=== PATIENT | female | born 1985 | race Caucasian/White ===

== ENCOUNTER 2017-02-24 17:03 | Emergency (ER) | payer OTHER, BC | END 2017-02-24 17:38 | disposition home or self-care (01) | DX: S19.9XXA Unspecified injury of neck, initial encounter (principal); M54.5 Low back pain; V43.52XA Car driver injured in collision with other type car in traffic accident, initial encounter; Y92.488 Other paved roadways as the place of occurrence of the external cause; R03.0 Elevated blood-pressure reading, without diagnosis of hypertension ==

== ENCOUNTER 2017-05-14 13:24 | Outpatient (CLI) | payer BC, OTHER ==
[2017-05-14 20:16] LABS: BASOPHILS % (AUTO) 0.1 %; EOSINOPHILS # (AUTO) 0.1 10^3/uL (0.0-0.7); EOSINOPHILS % (AUTO) 1.2 %; HCT - HEMATOCRIT 36.1 % (37.0-47.0); LYMPHOCYTES # (AUTO) 2.6 10^3/uL (1.5-3.5); LYMPHOCYTES % (AUTO) 35.9 %; MEAN CORPUSCULAR HEMOGLOBIN 27.8 pg (27.0-31.0); MEAN CORPUSCULAR HGB CONC 33.3 g/dL (32.0-36.0); MEAN CORPUSCULAR VOLUME 83.3 fL (81.0-99.0); MEAN PLATELET VOLUME 8.1 fL (7.9-10.8); MONOCYTES # (AUTO) 0.5 10^3/uL (0.0-1.0); MONOCYTES % (AUTO) 7.5 %; NEUTROPHILS % (AUTO) 55.3 %; RED BLOOD COUNT 4.33 10^6/uL (4.20-5.40); RED CELL DISTRIBUTION WIDTH 13.9 % (12.0-15.0); UNCORRECTED WHITE BLOOD COUNT 7.2 x10^3/uL; WHITE BLOOD COUNT 7.2 x10^3/uL (4.8-10.8)
[2017-05-14 20:22] LABS: HEMOGLOBIN A1C 0.5 g/dL
[2017-05-14 20:32] LABS: ALBUMIN/GLOBULIN RATIO 1.2 (1.0-2.2); BILIRUBIN,TOTAL 0.4 mg/dL (0.2-1.0); BUN - BLOOD UREA NITROGEN 15 mg/dL (6-20); CALCIUM 9.5 mg/dL (8.5-10.3); CARBON DIOXIDE - CO2 30 mmol/L (21-32); CHLORIDE 101 mmol/L (101-111); CHOLESTEROL 139 mg/dL; CREATININE 0.8 mg/dL (0.4-1.0); GFR - MDRD 83 (>89); GLUCOSE 112 mg/dL (70-100); HDL CHOLESTEROL 46 mg/dL; LDL/HDL RATIO 1.5 (<4.4); POTASSIUM 3.7 mmol/L (3.5-5.0); SODIUM 138 mmol/L (135-145); TOTAL PROTEIN 7.4 g/dL (6.7-8.2); TRIGLYCERIDES 119 mg/dL; VLDL CHOLESTEROL 24 mg/dL
== END 2017-05-14 13:25 | disposition home or self-care (01) ==
LOC: LAB.WCP 13:24
PROVIDERS: ATTEND Family Medicine
DX: Z00.00 Encounter for general adult medical examination without abnormal findings (principal); R10.31 Right lower quadrant pain
CPT/HCPCS: 36415; 80053; 80061; 83036; 84443; 85025

== ENCOUNTER 2017-05-18 13:55 | Outpatient (CLI) | payer BC ==
--- NOTE | 2017-05-19 17:04 | CT Report ---
EXAM: CT ABDOMEN AND PELVIS EXAM DATE: 05/18/2017 04:45 PM. CLINICAL HISTORY: Abdominal pain, right lower quadrant. COMPARISONS: None. TECHNIQUE: Routine helical CT imaging was performed through the abdomen and pelvis. IV contrast: 100 mL of Isovue-300. Enteric contrast: Positive. Reconstructions: Coronal and sagittal. In accordance with CT protocol optimization, one or more of the following dose reduction techniques w ere utilized for this exam: automated exposure control, adjustment of mA and/or KV based on patient s ize, or use of iterative reconstructive technique. FINDINGS: Lung Bases: Minimal basilar scar/atelectasis. Included portions of the heart are unremarkable. Liver: Normal. No masses. Gallbladder/Bile Ducts: Unremarkable. Spleen: Normal. Pancreas: Normal. Adrenal Glands: Normal. Kidneys: Normal. No masses or hydronephrosis. Peritoneal Cavity/Bowel: Stomach is moderately distended and unremarkable. No small bowel obstruction . No small bowel wall thickening. Moderate volume of stool is seen in the colon. No diverticulitis. N o free air. No free fluid. Fatty umbilical hernia. No enlarged retroperitoneal or mesenteric lymph no clarence. A structure in the right lower quadrant, which appears to represent the appendix, is visualized and is normal. No right lower quadrant or pericecal inflammatory changes. Pelvic Organs: Urinary bladder is unremarkable. Uterus is retroverted. No pelvic adenopathy. No pelvi c free fluid. No adnexal masses. Vasculature: No aneurysms or other significant abnormality. Bones: No acute osseous abnormalities. No significant degenerative changes are identified. Other: No evidence of right lower quadrant subcutaneous masses or hernia. IMPRESSION: 1. No evidence of appendicitis. 2. No bowel obstruction. Moderate volume of stool in the colon. No diverticulitis. 3. No nephrolithiasis. No hydronephrosis. No CT evidence of pyelonephritis. 4. Normal CT appearance of the gallbladder and pancreas. No biliary ductal dilatation. [facility] Referring Provider Line: [phone] SITE ID: [id number]
== END 2017-05-18 13:56 | disposition home or self-care (01) ==
LOC: DI 13:55
PROVIDERS: ATTEND Family Medicine
DX: R10.31 Right lower quadrant pain (principal)
CPT/HCPCS: 74177

== ENCOUNTER 2018-03-16 08:00 | Outpatient (CLI) | payer BC ==
[2018-03-16 18:51] LABS: BASOPHILS % (AUTO) 0.2 %; EOSINOPHILS # (AUTO) 0.1 10^3/uL (0.0-0.7); EOSINOPHILS % (AUTO) 1.3 %; HGB - HEMOGLOBIN 12.2 g/dL (12.0-16.0); LYMPHOCYTES # (AUTO) 3.1 10^3/uL (1.5-3.5); LYMPHOCYTES % (AUTO) 45.2 %; MEAN CORPUSCULAR HGB CONC 32.5 g/dL (32.0-36.0); MEAN CORPUSCULAR VOLUME 83.1 fL (81.0-99.0); MEAN PLATELET VOLUME 8.6 fL (7.9-10.8); MONOCYTES # (AUTO) 0.6 10^3/uL (0.0-1.0); MONOCYTES % (AUTO) 8.1 %; NEUTROPHILS # (AUTO) 3.1 10^3/uL (1.5-6.6); NEUTROPHILS % (AUTO) 45.2 %; PLT - PLATELET COUNT 278 10^3/uL (130-450); RED CELL DISTRIBUTION WIDTH 14.1 % (12.0-15.0); WHITE BLOOD COUNT 6.8 x10^3/uL (4.8-10.8)
== END 2018-03-16 08:01 | disposition home or self-care (01) ==
LOC: LAB.WCP 08:00
PROVIDERS: ATTEND Family Medicine
DX: R53.83 Other fatigue (principal)
CPT/HCPCS: 36415; 84443; 85025

== ENCOUNTER 2019-10-07 14:57 | Outpatient (CLI) | payer BC ==
[2019-10-07 18:31] LABS: BASOPHILS % (AUTO) 0.3 %; EOSINOPHILS # (AUTO) 0.1 10^3/uL (0.0-0.7); EOSINOPHILS % (AUTO) 2.1 %; HGB - HEMOGLOBIN 11.8 g/dL (12.0-16.0); LYMPHOCYTES # (AUTO) 2.7 10^3/uL (1.5-3.5); LYMPHOCYTES % (AUTO) 40.6 %; MEAN CORPUSCULAR HEMOGLOBIN 27.1 pg (27.0-31.0); MEAN CORPUSCULAR HGB CONC 31.2 g/dL (32.0-36.0); MEAN CORPUSCULAR VOLUME 86.7 fL (81.0-99.0); MEAN PLATELET VOLUME 10.8 fL (7.9-10.8); MONOCYTES # (AUTO) 0.5 10^3/uL (0.0-1.0); MONOCYTES % (AUTO) 7.6 %; NEUTROPHILS # (AUTO) 3.2 10^3/uL (1.5-6.6); NEUTROPHILS % (AUTO) 49.1 %; PLT - PLATELET COUNT 274 10^3/uL (130-450); RED BLOOD COUNT 4.36 10^6/uL (4.20-5.40); WHITE BLOOD COUNT 6.6 x10^3/uL (4.8-10.8)
[2019-10-07 19:03] LABS: ALBUMIN 4.2 g/dL (3.2-5.5); ALBUMIN/GLOBULIN RATIO 1.3 (1.0-2.2); BILIRUBIN,TOTAL 0.5 mg/dL (0.2-1.0); CALCIUM 9.3 mg/dL (8.5-10.3); CREATININE 0.8 mg/dL (0.4-1.0); TOTAL PROTEIN 7.4 g/dL (6.7-8.2)
== END 2019-10-07 23:59 | disposition home or self-care (01) ==
LOC: LAB.WCP 14:57
PROVIDERS: ATTEND Physician Assistant Medical
DX: R51 Headache (principal); R53.83 Other fatigue
CPT/HCPCS: 36415; 80053; 84443; 85025

== ENCOUNTER 2019-12-15 16:38 | Emergency (ER) | payer BC, OTHER ==
[2019-12-15 16:50] VITALS: BP 134/84
--- NOTE | 2019-12-15 17:06 | ED Physician Documentation ---
History of Present Illness - Stated complaint Stated Complaint: SORE THROAT - Chief complaint Chief Complaint: Heent - History obtained from History obtained from: Patient (4 days ago she had a illness marked with vomiting and diarrhea. That only lasted that single day and is now completely better. The subsequent day she developed a sore throat which is persistent. No fevers or respiratory symptoms otherwise. No neck stiffness.) Review of Systems Constitutional: denies: Fever, Chills Ears: denies: Loss of hearing, Ear pain Nose: denies: Rhinorrhea / runny nose, Congestion Throat: reports: Sore throat Cardiac: denies: Chest pain / pressure, Palpitations Respiratory: denies: Dyspnea, Cough PD PAST MEDICAL HISTORY - Past Medical History Past Medical History: No - Past Surgical History Past Surgical History: No - Present Medications Home Medications: Ambulatory Orders Medication Instructions Recorded Confirmed Norethindrone [Ortho Micronor] 1 tab PO DAILY 02/24/17 02/24/17 - Allergies Allergies/Adverse Reactions: Allergies Allergy/AdvReac Type Severity Reaction Status Date / Time No Known Drug Allergies Allergy Verified 12/15/19 16:49 - Social History Does the pt smoke?: No Smoking Status: Never smoker Does the pt drink ETOH?: No Does the pt have substance abuse?: No - Immunizations Immunizations are current?: Yes - POLST Patient has POLST: No PD ED PE NORMAL - Vitals Vital signs reviewed: Yes - General General: Alert and oriented X 3, No acute distress - HEENT HEENT: Other (Her uvula is red and swollen, there is no evidence of anything approaching an occlusion of the airway and no tonsillitis.) - Neck Neck: Supple, no meningeal sign, No bony TTP, No adenopathy - Derm Derm: Normal color, Warm and dry - Neuro Neuro: Alert and oriented X 3, No motor deficit, No sensory deficit, Normal spee ch Results - Vitals Vitals: Vital Signs - 24 hr 12/15/19 16:48 Temperature 36.8 C Heart Rate 82 Respiratory 17 Rate Blood Pressure 134/84 H O2 Saturation 99 Oxygen O2 Source Room air - Labs Labs: Laboratory Tests 12/15/19 17:01 Group A Strep Rapid Negative PD MEDICAL DECISION MAKING - ED course ED course: Given the time course, her uvulitis is probably from the vomiting, but we will check a strep test. Departure - Departure Disposition: 01 Home, Self Care Clinical Impression: Uvulitis Condition: Good Record reviewed to determine appropriate education?: Yes Instructions: ED Uvulitis Comments: Your uvula swelling is likely from the vomiting you are having the other day. For this you received a dose of long-acting steroids in the department here which should help a lot. Return for new or worsening symptoms or if not better by Thursday. We will culture your throat, if a bacterial pathogen is isolated we will call you in a couple of days.
[2019-12-15 17:21] LABS: RAPID STREP SCREEN Negative (Negative)
[2019-12-15] MEDS ORDERED: DEXAMETHASONE 10 MG/ML VIAL PO STA (17:21)
[2019-12-15] MEDS ORDERED: CHERRY SYRUP 10 ML UDC PO ONE (17:21)
== END 2019-12-15 17:37 | disposition home or self-care (01) ==
LOC: ED 16:38
DX: K12.2 Cellulitis and abscess of mouth (principal); R11.10 Vomiting, unspecified; R19.7 Diarrhea, unspecified
CPT/HCPCS: 87070; 87430; 99283; 99284; A9270

== ENCOUNTER 2019-12-16 13:47 | Emergency (ER) | payer OTHER ==
[2019-12-16 14:08] VITALS: BP 128/78
[2019-12-16] MEDS ORDERED: HYDROcod/ACETAM 5/325 MG TABLET PO STA (14:56)
--- NOTE | 2019-12-16 15:03 | ED Physician Documentation ---
History of Present Illness - Stated complaint Stated Complaint: SORE THROAT - Chief complaint Chief Complaint: Heent - History obtained from History obtained from: Patient - History of Present Illness Timing: How many days ago (3) Pain level max: 0 Pain level now: 0 - Additonal information Additional information: 34-year-old female presents to the emergency department with worsening sore throat. Seen here yesterday for same. She saw her doctor this morning who placed her on amoxicillin for group B strep in her throat culture. She is on steroids for home as well. Worse with swallowing, better with rest. Review of Systems Ten Systems: 10 systems reviewed and negative Constitutional: reports: Fever Throat: reports: Sore throat Cardiac: denies: Chest pain / pressure Respiratory: denies: Cough GI: denies: Vomiting, Diarrhea : denies: Now EGA Skin: denies: Rash PD PAST MEDICAL HISTORY - Past Medical History Past Medical History: No - Past Surgical History Past Surgical History: No - Present Medications Home Medications: Ambulatory Orders Medication Instructions Recorded Confirmed Norethindrone [Ortho Micronor] 1 tab PO DAILY 02/24/17 02/24/17 Hydrocodone/Acetaminophen 1 - 2 each PO Q6H PRN #14 tablet 12/16/19 [Hydrocodon-Acetaminophen 5-325] - Allergies Allergies/Adverse Reactions: Allergies Allergy/AdvReac Type Severity Reaction Status Date / Time No Known Drug Allergies Allergy Verified 12/16/19 14:07 - Social History Does the pt smoke?: No Smoking Status: Never smoker Does the pt drink ETOH?: No Does the pt have substance abuse?: No - Immunizations Immunizations are current?: Yes - POLST Patient has POLST: No PD ED PE NORMAL - Vitals Vital signs reviewed: Yes - General General: Alert and oriented X 3, No acute distress, Well developed/nourished - HEENT HEENT: PERRL, Moist mucous membranes, Other (Posterior oropharyngeal erythema without tonsillar exudates. Uvula midline. Normal phonation. No trismus.) - Neck Neck: Supple, no meningeal sign, No adenopathy - Cardiac Cardiac: RRR - Respiratory Respiratory: No respiratory distress, Clear bilaterally - Abdomen Abdomen: Soft, Non tender, Non distended - Derm Derm: Warm and dry - Neuro Neuro: Alert and oriented X 3 - Psych Psych: Normal mood, Normal affect Results - Vitals Vitals: Vital Signs - 24 hr 12/16/19 14:02 Temperature 37.2 C Heart Rate 127 H Respiratory 16 Rate Blood Pressure 128/78 O2 Saturation 99 Oxygen O2 Source Room air PD MEDICAL DECISION MAKING - ED course Complexity details: reviewed results, re-evaluated patient, considered differential, d/w patient, d/w family ED course: We will place on pain medication for home. She is also already on steroids and antibiotics. We will continue supportive care. No peritonsillar or retropharyngeal abscess. Patient counseled regarding signs and symptoms for which I believe and urgent re-evaluation would be necessary. Patient with good understanding of and agreement to plan and is comfortable going home at this time This document was made in part using voice recognition software. While efforts are made to proofread this document, sound alike and grammatical errors may occur. Departure - Departure Disposition: 01 Home, Self Care Clinical Impression: Strep pharyngitis Condition: Good Instructions: ED Strep Pharyngitis Conf Follow-Up: Crystal Rojas DO [Primary Care Provider] - Within 1 week (if not better) Prescriptions: Hydrocodone/Acetaminophen [Hydrocodon-Acetaminophen 5-325] 1 - 2 each PO Q6H PRN #14 tablet PRN Reason: pain Comments: Your throat culture is growing out group B strep. Take the amoxicillin until gone. Return if you worsen. Drink plenty of fluids. Do not drink alcohol or drive while on narcotic pain medicine. Note that many narcotic pain relievers also contain tylenol/acetaminophen. Please ensure that your total dose of acetaminophen from all sources does not exceed 3 grams (3000mg) per day. You may constipated on this medication, take a stool softener such as "Colace" twice a day while you are on it. Also recommend a kqlk-jjv-vcljsji laxative such as senna or MiraLAX any day that you do not have a bowel movement. If you received narcotic pain medication in the emergency department, do not drive or operate machinery for the next 24 hours.
== END 2019-12-16 15:15 | disposition home or self-care (01) ==
LOC: ED 13:47
DX: J02.0 Streptococcal pharyngitis (principal)
CPT/HCPCS: 99282; 99284; A9270

== ENCOUNTER 2019-12-25 08:12 | Emergency (ER) | payer OTHER ==
[2019-12-25 08:25] VITALS: BP 127/87
--- NOTE | 2019-12-25 08:36 | ED Physician Documentation ---
PD HPI HEENT - Stated complaint Stated Complaint: BODY PX/MOUTH PX - Chief complaint Chief Complaint: General - History obtained from History obtained from: Patient - History of Present Illness Timing - onset: How many days ago (12) Timing - duration: Days (12) Timing - details: Gradual onset, Still present Location: Throat Improves: Nothing Worsens: Swalllowing Associated symptoms: Congestion, Headache Similar symptoms before: Diagnosis (strep) Recently seen: Clinic, Emergency Dept - Additional information Additional information: 34-year-old female has developed a sore throat about 12 days ago. She was seen here in the emergency department a rapid strep was negative. She was given a dose of dexamethasone. She was worse the following day and she went in to see her primary care doctor who placed her on a course of steroid and some amoxicillin. She came back to the ED that same day and was prescribed some pain medication. Her throat culture grew beta hemolytic Group G strep. She developed a white tongue and was seen at an urgent care and prescribed nystatin. At that time the patient self discontinued the amoxicillin and when the nystatin did not work she went again to the doctor and was started on clotrimazole. Her thrush symptoms are improving but she has a persistent sore throat and now has aches all over her body. Review of Systems Constitutional: reports: Fever, Myalgias, Fatigue Eyes: denies: Photophobia Ears: reports: Ear pain Nose: reports: Rhinorrhea / runny nose, Congestion Throat: reports: Sore throat Cardiac: denies: Chest pain / pressure, Palpitations Respiratory: denies: Dyspnea, Cough GI: denies: Abdominal Pain, Nausea, Vomiting : denies: Dysuria, Frequency Musculoskeletal: reports: Extremity pain, Joint pain. denies: Neck pain, Back pain Neurologic: denies: Generalized weakness, Focal weakness, Numbness PD PAST MEDICAL HISTORY - Past Surgical History Past Surgical History: No - Present Medications Home Medications: Ambulatory Orders Medication Instructions Recorded Confirmed Clotrimazole Meghna 10 mg MM 5XD 12/25/19 12/25/19 - Allergies Allergies/Adverse Reactions: Allergies Allergy/AdvReac Type Severity Reaction Status Date / Time No Known Drug Allergies Allergy Verified 12/25/19 08:24 - Social History Does the pt smoke?: No Smoking Status: Never smoker Does the pt drink ETOH?: No Does the pt have substance abuse?: No - Immunizations Immunizations are current?: Yes - POLST Patient has POLST: No PD ED PE NORMAL - Vitals Vital signs reviewed: Yes (tachy and hypertensive ) - General General: Alert and oriented X 3, No acute distress, Well developed/nourished - HEENT HEENT: Atraumatic, PERRL, EOMI, Other (There is minimal white exudate to the tongue postero-lateral. There are 2+ cryptic exudative tonsils with more inflamation to the left tonsillar pillar and this is the side the patient is having the most ear popping. 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, No motor deficit, No sensory deficit, Normal speech Eye Opening: Spontaneous Motor: Obeys Commands Verbal: Oriented GCS Score: 15 - Psych Psych: Normal mood, Normal affect Results - Vitals Vitals: Vital Signs - 24 hr 12/25/19 08:21 Temperature 36.5 C Heart Rate 118 H Respiratory 16 Rate Blood Pressure 127/87 H O2 Saturation 100 Oxygen O2 Source Room air PD MEDICAL DECISION MAKING - ED course Complexity details: reviewed old records, reviewed results, considered differential, d/w patient ED course: 34-year-old female with strep pharyngitis has completed only 3 days of amoxicillin and she misunderstood that she had strep.I have encouraged the patient to complete her course of amoxicillin to continue the Chlortrimazole atrocious as previously prescribed and use other symptomatic relief as needed. Departure - Departure Disposition: 01 Home, Self Care Clinical Impression: Strep pharyngitis Condition: Stable Instructions: ED Strep Pharyngitis Conf Follow-Up: Crystal Rojas DO [Primary Care Provider] - Comments: Finish the amoxicillin you were prescribed previously. It is important to take all of the doses. You should expect day by day improvement and by day 3 have marked improvement.
== END 2019-12-25 09:33 | disposition home or self-care (01) ==
LOC: ED 08:12
DX: J02.0 Streptococcal pharyngitis (principal)
CPT/HCPCS: 99281; 99282

== ENCOUNTER 2020-01-13 07:00 | Outpatient (CLI) | payer OTHER | END 2020-01-13 23:59 | disposition home or self-care (01) | LOC: LAB.R 07:00 | PROVIDERS: ATTEND Nurse Practitioner Family | DX: J02.9 Acute pharyngitis, unspecified (principal) | CPT/HCPCS: 87070 ==

== ENCOUNTER 2020-05-10 09:36 | Outpatient (CLI) | payer OTHER ==
[2020-05-10 11:34] LABS: BASOPHILS % (AUTO) 0.3 %; EOSINOPHILS # (AUTO) 0.1 10^3/uL (0.0-0.7); EOSINOPHILS % (AUTO) 1.5 %; HGB - HEMOGLOBIN 12.8 g/dL (12.0-16.0); LYMPHOCYTES # (AUTO) 1.6 10^3/uL (1.5-3.5); LYMPHOCYTES % (AUTO) 26.5 %; MEAN CORPUSCULAR HEMOGLOBIN 28.1 pg (27.0-31.0); MEAN CORPUSCULAR HGB CONC 32.5 g/dL (32.0-36.0); MEAN CORPUSCULAR VOLUME 86.4 fL (81.0-99.0); MEAN PLATELET VOLUME 10.6 fL (7.9-10.8); MONOCYTES # (AUTO) 0.6 10^3/uL (0.0-1.0); MONOCYTES % (AUTO) 9.1 %; NEUTROPHILS # (AUTO) 3.8 10^3/uL (1.5-6.6); NEUTROPHILS % (AUTO) 62.1 %; PLT - PLATELET COUNT 264 10^3/uL (130-450); RED BLOOD COUNT 4.56 10^6/uL (4.20-5.40); RED CELL DISTRIBUTION WIDTH 13.9 % (12.0-15.0); WHITE BLOOD COUNT 6.2 x10^3/uL (4.8-10.8)
[2020-05-10 11:47] LABS: ALBUMIN 4.4 g/dL (3.2-5.5); ALBUMIN/GLOBULIN RATIO 1.1 (1.0-2.2); BILIRUBIN,TOTAL 0.7 mg/dL (0.2-1.0); CALCIUM 9.5 mg/dL (8.5-10.3); CREATININE 0.9 mg/dL (0.4-1.0); TOTAL PROTEIN 8.4 g/dL (6.7-8.2)
== END 2020-05-10 23:59 | disposition home or self-care (01) ==
LOC: LAB.WCP 09:36
PROVIDERS: ATTEND Family Medicine
DX: R10.9 Unspecified abdominal pain (principal); R53.83 Other fatigue
CPT/HCPCS: 36415; 80053; 81599; 82150; 83516; 83690; 84443; 85025; 86255

== ENCOUNTER 2020-05-22 08:49 | Outpatient (CLI) | payer OTHER ==
--- NOTE | 2020-05-22 13:37 | Ultrasound Report ---
PROCEDURE: Abdomen Limited INDICATIONS: ABD PAIN TECHNIQUE: Real-time scanning was performed of the abdominal and retroperitoneal organs, with image documentatio n. COMPARISON: None. FINDINGS: Liver: Liver is enlarged in size and demonstrates steatosis. Gallbladder: No stones are identified. Wall thickness is within normal limits measuring 2 mm. Biliary ducts: Intrahepatic bile ducts are non-dilated. Extrahepatic bile duct caliber measures 6.2 mm. Normal is 6-7 mm or less in diameter, or 10 mm or less post-cholecystectomy. Pancreas: Visualized portions of the pancreas are sonographically normal. Spleen: Spleen is normal in size and homogeneous in echotexture. Kidneys: Kidneys are normal in size and echotexture. Right kidney measures 12.5 cm long. No hydron ephrosis or nephrolithiasis. No solid masses. IMPRESSION: Hepatic steatosis. No gallstones or gallbladder wall thickening. Reviewed by: Paulina Foley MD on 05/22/2020 1:35 PM PDT Approved by: Paulina Foley MD on 05/22/2020 1:35 PM PDT Station ID: [id number]
== END 2020-05-22 08:50 | disposition home or self-care (01) ==
LOC: DI 08:49
PROVIDERS: ATTEND Family Medicine
DX: R10.9 Unspecified abdominal pain (principal); K76.0 Fatty (change of) liver, not elsewhere classified
CPT/HCPCS: 76705

== ENCOUNTER 2020-07-02 08:43 | Outpatient (CLI) | payer OTHER | END 2020-07-02 08:44 | disposition home or self-care (01) | LOC: DI 08:43 | PROVIDERS: ATTEND Family Medicine | DX: Z53.9 Procedure and treatment not carried out, unspecified reason (principal) ==

== ENCOUNTER 2020-07-24 08:39 | Outpatient (CLI) | payer OTHER ==
[2020-07-24] MEDS ORDERED: SINCALIDE 5 MCG VIAL ONE (10:19)
[2020-07-24] MEDS ORDERED: SINCALIDE 2.4 MCG in SODIUM CHLORIDE 0.9% 50 ML IV ONE (12:23)
--- NOTE | 2020-07-24 15:39 | Nuclear Medicine Report ---
PROCEDURE: Hepatobiliary HIDA w/ Rx INDICATIONS: ABDOMINAL PAIN RADIOPHARMACEUTICAL: 5.1 mCi Tc-99m meprofenin i.v. and 1.93 ?g sincalide i.v. TECHNIQUE: Following intravenous administration of Tc-99m meprofenin, sequential anterior abdominal images were obtained through 60 minutes. To evaluate the contractile response of the gallbladder in response to Cholecystokinin (CCK), 1.93 microgram sincalide (0.02 ?g/kg) was administered by slow int ravenous infusion approximately 60 minutes after the administration of the radiopharmaceutical. Sequ ential imaging was continued for 30 minutes after the start of CCK infusion. Gallbladder ejection fr action was calculated. COMPARISON: CT abdomen/pelvis, 05/18/2017. Ultrasound abdomen, 05/22/2020. FINDINGS: Biliary scan: There is normal tracer uptake and excretion by the liver. There is normal visualizati on of the intrahepatic ducts, common bile duct, and gallbladder. There is normal tracer transit into the duodenum. CCK stimulation: There is normal contractile response of the gallbladder to CCK infusion. The calcu lated gallbladder ejection fraction is 95%; normal values are above 35%. IMPRESSION: 1. Normal biliary imaging study. 2. Normal contractile response of gallbladder to CCK infusion.. Reviewed by: Isidro Jara MD on 07/24/2020 3:38 PM PDT Approved by: Isidro Jara MD on 07/24/2020 3:38 PM PDT Station ID: [id number]
== END 2020-07-24 08:40 | disposition home or self-care (01) ==
LOC: DI 08:39
PROVIDERS: ATTEND Family Medicine
DX: R10.9 Unspecified abdominal pain (principal)
CPT/HCPCS: 78227; J7040

== ENCOUNTER 2020-07-29 21:33 | Emergency (ER) | payer OTHER ==
--- NOTE | 2020-07-29 23:17 | ED Physician Documentation ---
History of Present Illness - Stated complaint Stated Complaint: RT SIDE PX - Chief complaint Chief Complaint: Abd Pain - History obtained from History obtained from: Patient - Additonal information Additional information: Patient is a 35-year-old female presents with a chief complaint of right upper quadrant pain with nausea with no vomiting denies any jaundice-like symptoms denies fever dysuria or hematuria. Reports she has a scheduled follow-up appointment with her primary care provider tomorrow.Describes her symptoms as minimal currently. Review of Systems Constitutional: reports: Reviewed and negative Eyes: reports: Reviewed and negative Ears: reports: Reviewed and negative Nose: reports: Reviewed and negative Throat: reports: Reviewed and negative Cardiac: reports: Reviewed and negative Respiratory: reports: Reviewed and negative GI: reports: Abdominal Pain, Nausea : reports: Reviewed and negative Skin: reports: Reviewed and negative Musculoskeletal: reports: Reviewed and negative Neurologic: reports: Reviewed and negative Psychiatric: reports: Reviewed and negative Endocrine: reports: Reviewed and negative Immunocompromised: reports: Reviewed and negative PD PAST MEDICAL HISTORY - Past Surgical History Past Surgical History: No - Present Medications Home Medications: Ambulatory Orders Medication Instructions Recorded Confirmed No Known Home Medications 07/29/20 07/29/20 - Allergies Allergies/Adverse Reactions: Allergies Allergy/AdvReac Type Severity Reaction Status Date / Time No Known Drug Allergies Allergy Verified 07/29/20 21:35 - Social History Does the pt smoke?: No Smoking Status: Never smoker Does the pt drink ETOH?: No Does the pt have substance abuse?: No - Immunizations Immunizations are current?: Yes - POLST Patient has POLST: No PD ED PE NORMAL - Vitals Vital signs reviewed: Yes - General General: Alert and oriented X 3, No acute distress, Well developed/nourished - HEENT HEENT: Atraumatic, PERRL, Moist mucous membranes, Pharynx benign, Dentition benign - Neck Neck: Supple, no meningeal sign, No adenopathy - Cardiac Cardiac: RRR, No murmur, Strong equal pulses - Respiratory Respiratory: No respiratory distress, Clear bilaterally - Abdomen Abdomen: Normal bowel sounds, Soft, Non tender, Non distended, No organomegaly - Derm Derm: Warm and dry - Extremities Extremities: No deformity, No tenderness to palpate, Normal ROM s pain, No edema, No calf tenderness / cord - Neuro Neuro: Alert and oriented X 3, l d rn 2-12 intact, No motor deficit, No sensory deficit, Normal speech - Psych Psych: Normal mood, Normal affect Results - Vitals Vitals: Vital Signs - 24 hr 07/29/20 07/29/20 07/30/20 21:35 23:20 00:01 Temperature 36.5 C 36.7 C 36.8 C Heart Rate 80 84 82 Respiratory 16 14 16 Rate Blood Pressure 140/100 H 126/72 128/74 O2 Saturation 100 99 99 07/30/20 00:31 Temperature 36.8 C Heart Rate 75 Respiratory 16 Rate Blood Pressure 129/79 O2 Saturation 98 Oxygen O2 Source Room air - Labs Labs: Laboratory Tests 07/29/20 07/29/20 07/29/20 23:19 23:50 23:50 WBC 7.9 RBC 4.62 Hgb 12.7 Hct 39.3 MCV 85.1 MCH 27.5 MCHC 32.3 RDW 13.9 Plt Count 250 MPV 10.2 Neut # (Auto) 4.1 Lymph # (Auto) 3.0 [place] # (Auto) 0.6 Eos # (Auto) 0.2 Baso # (Auto) 0.0 Absolute Nucleated RBC 0.00 Nucleated RBC % 0.0 Sodium 138 Potassium 3.5 Chloride 105 Carbon Dioxide 24 Anion Gap 9.0 BUN 19 Creatinine 0.8 Estimated GFR (MDRD) 81 L Glucose 109 H Calcium 9.3 Total Bilirubin 0.4 AST 18 ALT 15 Alkaline Phosphatase 55 Total Protein 7.5 Albumin 4.2 Globulin 3.3 Albumin/Globulin Ratio 1.3 Lipase 47 Urine Color YELLOW Urine Clarity CLEAR Urine pH 6.5 Ur Specific [place] 1.020 Urine Protein NEGATIVE Urine Glucose (UA) NEGATIVE Urine Ketones NEGATIVE Urine Occult Blood NEGATIVE Urine Nitrite NEGATIVE Urine Bilirubin NEGATIVE Urine Urobilinogen 0.2 (NORMAL) Ur Leukocyte Esterase NEGATIVE Ur Microscopic Review NOT INDICATED Urine Culture Comments NOT INDICATED Urine HCG, Qual NEGATIVE PD MEDICAL DECISION MAKING - ED course Complexity details: reviewed old records, reviewed results, re-evaluated patient, considered differential, d/w patient ED course: 35-year-old female with mild right upper quadrant discomfort. She is asymptomatic currently we did send some screening labs are unremarkable. She is tolerated p.o. challenge and would like to be discharged home she is afebrile her urinalysis is unremarkable. She has a scheduled follow-up appointment with her primary care provider today. Unsure of the etiology of her complaint however given the fact that she has close follow-up with feel it is reasonable to discharge her without any additional testing such as imaging. Departure - Departure Disposition: 01 Home, Self Care Clinical Impression: Abdominal pain Qualifiers: Abdominal location: unspecified location Qualified Code(s): R10.9 - Unspecified abdominal pain Condition: Stable Instructions: ED Abdominal Pain Unkn Cause Follow-Up: Crystal Rojas DO [Primary Care Provider] - Tomorrow Comments: Please follow-up with your primary care provider this week for recheck. Return to the emergency department with any concerns. Discharge Date/Time: 07/30/20 00:32
[2020-07-29 23:26] LABS: BILIRUBIN,URINE NEGATIVE (NEGATIVE); GLUCOSE, URINE (UA) NEGATIVE (NEGATIVE); KETONES,URINE (UA) NEGATIVE (NEGATIVE); LEUKOCYTE ESTERASE, URINE NEGATIVE (NEGATIVE); NITRITE,URINE NEGATIVE (NEGATIVE); OCCULT BLOOD,URINE NEGATIVE (NEGATIVE); PH,URINE 6.5 PH (5.0-7.5); PROTEIN,URINE NEGATIVE (NEGATIVE); UROBILINOGEN,URINE 0.2 (NORMAL) E.U./dL (NORMAL)
[2020-07-29 23:28] LABS: CLARITY,URINE CLEAR (CLEAR); HCG UR QUAL NEGATIVE
[2020-07-29 23:57] LABS: BASOPHILS % (AUTO) 0.4 %; EOSINOPHILS # (AUTO) 0.2 10^3/uL (0.0-0.7); EOSINOPHILS % (AUTO) 1.9 %; HGB - HEMOGLOBIN 12.7 g/dL (12.0-16.0); LYMPHOCYTES % (AUTO) 37.4 %; MEAN CORPUSCULAR HEMOGLOBIN 27.5 pg (27.0-31.0); MEAN CORPUSCULAR HGB CONC 32.3 g/dL (32.0-36.0); MEAN CORPUSCULAR VOLUME 85.1 fL (81.0-99.0); MEAN PLATELET VOLUME 10.2 fL (7.9-10.8); MONOCYTES # (AUTO) 0.6 10^3/uL (0.0-1.0); MONOCYTES % (AUTO) 7.7 %; NEUTROPHILS # (AUTO) 4.1 10^3/uL (1.5-6.6); NEUTROPHILS % (AUTO) 52.2 %; PLT - PLATELET COUNT 250 10^3/uL (130-450); RED BLOOD COUNT 4.62 10^6/uL (4.20-5.40); RED CELL DISTRIBUTION WIDTH 13.9 % (12.0-15.0); WHITE BLOOD COUNT 7.9 x10^3/uL (4.8-10.8)
[2020-07-30 00:08] LABS: ALBUMIN 4.2 g/dL (3.2-5.5); ALBUMIN/GLOBULIN RATIO 1.3 (1.0-2.2); BILIRUBIN,TOTAL 0.4 mg/dL (0.2-1.0); CALCIUM 9.3 mg/dL (8.5-10.3); CREATININE 0.8 mg/dL (0.4-1.0); TOTAL PROTEIN 7.5 g/dL (6.7-8.2)
[2020-07-30 00:32] VITALS: BP 129/79
== END 2020-07-30 00:32 | disposition home or self-care (01) ==
LOC: ED 21:33
DX: R10.11 Right upper quadrant pain (principal); R11.0 Nausea
CPT/HCPCS: 36415; 80053; 81001; 81003; 81025; 83690; 85025; 87086; 99283

== ENCOUNTER 2020-08-15 13:12 | Outpatient (CLI) | payer OTHER ==
--- NOTE | 2020-08-15 13:15 | XRAY Report ---
PROCEDURE: Hip 1 View RT INDICATIONS: RIGHT HIP PAIN TECHNIQUE: 2 views of the right hip were acquired. COMPARISON: CT abdomen and pelvis 05/18/2017 FINDINGS: Bones: No fractures or dislocations. No suspicious bony lesions. The visualized pelvic ring appear s intact. Soft tissues: No suspicious soft tissue calcifications or masses. IMPRESSION: No osseous lesion. If there is continued clinical concern for pathology, then advanced imaging (CT, M R, bone scan) should be considered for further evaluation. Reviewed by: Marcia Ortiz MD, PhD on 08/15/2020 12:13 PM [facility] Approved by: Marcia Ortiz MD, PhD on 08/15/2020 12:13 PM [facility] Station ID: [id number]
== END 2020-08-15 23:59 | disposition home or self-care (01) ==
LOC: DI.WCP 13:12
PROVIDERS: ATTEND Family Medicine
DX: M25.551 Pain in right hip (principal)

== ENCOUNTER 2020-08-24 18:35 | Outpatient (CLI) | payer OTHER ==
--- NOTE | 2020-08-24 20:19 | Ultrasound Report ---
PROCEDURE: Pelvic w/Transvaginal INDICATIONS: ACUTE PELVIC PAIN TECHNIQUE: Real-time scanning was performed of the pelvic organs, with image documentation. Additional endovagi nal scanning was necessary due to incomplete visualization of the adnexal and endometrial structures by transabdominal scanning. COMPARISON: CT abdomen/pelvis 05/18/2017. FINDINGS: Transabdominal scanning: Limited scanning through the kidneys shows no hydronephrosis. No pathologi c free abdominal or pelvic fluid. Endovaginal scanning: Uterus: Uterus is normal in size at 3.3 x 4.7 x 9.0 cm. The endometrium measures 11.1 mm in combine d thickness. Ovaries: The right ovary measures 2.8 x 2.0 x 2.3 cm and the left measures 3.7 x 1.7 x 1.8 cm. IMPRESSION: Overall a source of pelvic pain is not identified. The myometrium and endometrium appears normal. Cheo lity of visualization of the left ovary is somewhat limited by transvaginal scanning given its high p ositioning on the left. There is no suspicion for presence of ovarian torsion given the symmetric nor mal size and volume of the ovaries bilaterally. Reviewed by: Baljit Landis MD on 08/24/2020 8:18 PM PDT Approved by: Baljit Landis MD on 08/24/2020 8:18 PM PDT Station ID: [id number]
== END 2020-08-24 18:36 | disposition home or self-care (01) ==
LOC: DI 18:35
PROVIDERS: ATTEND Family Medicine
DX: R10.2 Pelvic and perineal pain (principal)
CPT/HCPCS: 76830; 76856

== ENCOUNTER 2020-09-28 08:00 | Outpatient (CLI) | payer OTHER ==
[2020-09-28 17:54] LABS: HGB - HEMOGLOBIN 12.2 g/dL (12.0-16.0); MEAN CORPUSCULAR HEMOGLOBIN 27.4 pg (27.0-31.0); MEAN CORPUSCULAR HGB CONC 31.4 g/dL (32.0-36.0); MEAN CORPUSCULAR VOLUME 87.2 fL (81.0-99.0); MEAN PLATELET VOLUME 10.7 fL (7.9-10.8); RED BLOOD COUNT 4.45 10^6/uL (4.20-5.40); RED CELL DISTRIBUTION WIDTH 14.2 % (12.0-15.0); WHITE BLOOD COUNT 6.9 x10^3/uL (4.8-10.8)
[2020-09-28 18:28] LABS: FERRITIN 17.6 ng/mL (11.0-306.8)
[2020-09-28 18:29] LABS: PROLACTIN 11.96 ng/mL
[2020-09-28 18:30] LABS: % IRON SATURATION 11 % (20-50); IRON 42 ug/dL (28-170); TOTAL IRON BINDING CAPACITY 368 ug/dL (250-450); TRANSFERRIN 263 mg/dL (192-382)
[2020-09-28 18:51] LABS: FOLLICLE STIMULATING HORMONE 7.6 mIU/mL
[2020-09-28 21:04] LABS: HEMOGLOBIN A1c% 5.5 % (4.27-6.07)
== END 2020-09-28 23:59 | disposition home or self-care (01) ==
LOC: LAB.WCP 08:00
PROVIDERS: ATTEND Obstetrics & Gynecology
DX: Z00.00 Encounter for general adult medical examination without abnormal findings (principal); N97.9 Female infertility, unspecified
CPT/HCPCS: 36415; 81599; 82306; 82670; 82728; 83001; 83036; 83520; 83540; 84146; 84443; 84466; 85025; 85027; 86762; 86787

== ENCOUNTER 2020-11-01 11:43 | Outpatient (CLI) | payer OTHER ==
[2020-11-01] MEDS ORDERED: IOVERSOL 320 50 ML VIAL ONE (12:07)
[2020-11-01] MEDS ORDERED: IOVERSOL 320 100 ML VIAL IVP ONE ×2 (12:07→13:25)
[2020-11-01] MEDS ORDERED: IOVERSOL 320 50 ML VIAL PO ONE (13:25)
--- NOTE | 2020-11-01 13:33 | CT Report ---
PROCEDURE: Abdomen/Pelvis W INDICATIONS: ABD PAIN CONTRAST: IV CONTRAST: Optiray 320 ml: 100 PO CONTRAST: *NO PO CONTRAST TECHNIQUE: After the administration of 100 mL contrast, 5 mm thick sections acquired from the diaphragms to the symphysis. 5 mm thick coronal and sagittal reformats were acquired. For radiation dose reduction, t he following was used: automated exposure control, adjustment of mA and/or kV according to patient s ize. COMPARISON: None. FINDINGS: Image quality: Excellent. ABDOMEN: Lung bases: Lung bases are clear. Heart size is normal. Solid organs: Liver and spleen are normal in size and enhancement. Gallbladder is normal. Biliary s ystem is non dilated. Pancreas enhances normally. No adrenal nodules. Kidneys demonstrate normal s ize and enhancement, without hydronephrosis. Peritoneum and bowel: Bowel loops demonstrate normal wall thickness and caliber. No free fluid or a ir. Nodes and vessels: No retroperitoneal or mesenteric adenopathy by size criteria. Aorta and inferior vena cava are normal in size. Miscellaneous: There is a small fat-containing ventral hernia. PELVIS: Genitourinary: Bladder wall thickness is normal. Miscellaneous: No inguinal hernias or adenopathy. Bones: No suspicious bony lesions. No vertebral body compression fractures. IMPRESSION: No acute abdominal or pelvic abnormality Reviewed by: Jhonatan Chinchilla on 11/01/2020 1:32 PM PST Approved by: Jhonatan Chinchilla on 11/01/2020 1:32 PM PST Station ID: [id number]
== END 2020-11-01 11:44 | disposition home or self-care (01) ==
LOC: DI 11:43
PROVIDERS: ATTEND Family Medicine
DX: R10.9 Unspecified abdominal pain (principal)
CPT/HCPCS: 74177; Q9967

== ENCOUNTER 2020-11-28 19:39 | Emergency (ER) | payer OTHER ==
[2020-11-28 19:47] VITALS: BP 146/80
--- NOTE | 2020-11-28 19:59 | ED Physician Documentation ---
History of Present Illness - Stated complaint Stated Complaint: MART/CONFUSION - Chief complaint Chief Complaint: Neuro - History obtained from History obtained from: Patient - Additonal information Additional information: This is a very healthy 35-year-old woman who has had a tough year for unclear reasons. It all started last summer when she started to have sore throats. Then developed some right lower quadrant pain radiating to the hip, subsequently developed some muscular right shoulder pain. She has been seen by ENT who thought she was grinding her teeth. She had a HIDA scan which was normal. She had an abdominal ultrasound which showed steatosis but nothing else. She had a CAT scan of her belly, this was unrevealing. She saw her primary care physician who recommended a sleep study, but she does not think that is the problem and will not go. More recently over the last 4 days she has some tenderness in the right restoration and she feels like there is a notch in her right mastoid. She was at the ENT office today. They still just thought she was grinding her teeth. She presents because she googled her symptoms and she is worried about temporal arteritis. 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 - Present Medications Home Medications: Ambulatory Orders Medication Instructions Recorded Confirmed No Known Home Medications 07/29/20 11/28/20 - Allergies Allergies/Adverse Reactions: Allergies Allergy/AdvReac Type Severity Reaction Status Date / Time No Known Drug Allergies Allergy Verified 11/28/20 19:42 - Social History Does the pt smoke?: No Smoking Status: Never smoker Does the pt drink ETOH?: No Does the pt have substance abuse?: No - Immunizations Immunizations are current?: Yes - POLST Patient has POLST: No PD ED PE NORMAL - Vitals Vital signs reviewed: Yes - General General: Alert and oriented X 3, No acute distress - HEENT HEENT: Other (Palpation of the scalp in the area that she is symptomatic, specifically over the mastoids and infra-auricular areas on both sides is without abnormality. No lymphadenopathy. TMs are normal. Oropharynx is normal.) - Neck Neck: Supple, no meningeal sign, No bony TTP - Cardiac Cardiac: RRR, No murmur - Respiratory Respiratory: No respiratory distress, Clear bilaterally - Abdomen Abdomen: Non tender - Back Back: No CVA TTP, No spinal TTP - Derm Derm: Normal color, Warm and dry - Extremities Extremities: No edema, No calf tenderness / cord - Neuro Neuro: Alert and oriented X 3, No motor deficit, No sensory deficit, Normal speech Results - Vitals Vitals: Vital Signs - 24 hr 11/28/20 19:42 Temperature 37.0 C Heart Rate 80 Respiratory 18 Rate Blood Pressure 146/80 H O2 Saturation 100 Oxygen O2 Source Room air - Labs Labs: Laboratory Tests 11/28/20 11/28/20 11/28/20 20:01 20:01 20:01 WBC 7.3 RBC 4.75 Hgb 13.3 Hct 40.4 MCV 85.1 MCH 28.0 MCHC 32.9 RDW 13.7 Plt Count 273 MPV 10.6 Neut # (Auto) 3.4 Lymph # (Auto) 3.2 [place] # (Auto) 0.5 Eos # (Auto) 0.1 Baso # (Auto) 0.0 Absolute Nucleated RBC 0.00 Nucleated RBC % 0.0 ESR 13 Sodium 140 Potassium 3.7 Chloride 102 Carbon Dioxide 25 Anion Gap 13.0 BUN 19 Creatinine 1.0 Estimated GFR (MDRD) 63 L Glucose 105 H Calcium 10.3 Total Bilirubin 0.4 AST 18 ALT 14 Alkaline Phosphatase 52 C-Reactive Protein 1.2 H Total Protein 7.9 Albumin 4.6 Globulin 3.3 Albumin/Globulin Ratio 1.4 PD MEDICAL DECISION MAKING - ED course ED course: She has specific concerns about temporal arteritis. Discussed that this diagnosis was exceedingly rare except in the elderly. She was still wanting testing and ESR/CRP ordered. Departure - Departure Disposition: Home, Self Care Clinical Impression: Headache Qualifiers: Headache type: other headache syndrome Qualified Code(s): G44.89 - Other headache syndrome Condition: Good Record reviewed to determine appropriate education?: Yes Instructions: ED Cephalgia Unspecified Comments: Your inflammatory markers are normal, not consistent with temporal arteritis. Follow-up with your doctor, I would recommend you go through with the sleep study as she recommended. Also consider neurology evaluation. Return if worsening. Also consider SNRI with your doctor.
[2020-11-28 20:08] LABS: BASOPHILS % (AUTO) 0.3 %; EOSINOPHILS # (AUTO) 0.1 10^3/uL (0.0-0.7); EOSINOPHILS % (AUTO) 1.5 %; HGB - HEMOGLOBIN 13.3 g/dL (12.0-16.0); LYMPHOCYTES # (AUTO) 3.2 10^3/uL (1.5-3.5); MEAN CORPUSCULAR HGB CONC 32.9 g/dL (32.0-36.0); MEAN CORPUSCULAR VOLUME 85.1 fL (81.0-99.0); MEAN PLATELET VOLUME 10.6 fL (7.9-10.8); MONOCYTES # (AUTO) 0.5 10^3/uL (0.0-1.0); MONOCYTES % (AUTO) 7.4 %; NEUTROPHILS # (AUTO) 3.4 10^3/uL (1.5-6.6); NEUTROPHILS % (AUTO) 46.5 %; PLT - PLATELET COUNT 273 10^3/uL (130-450); RED BLOOD COUNT 4.75 10^6/uL (4.20-5.40); RED CELL DISTRIBUTION WIDTH 13.7 % (12.0-15.0); WHITE BLOOD COUNT 7.3 x10^3/uL (4.8-10.8)
[2020-11-28 20:26] LABS: ALBUMIN 4.6 g/dL (3.2-5.5); ALBUMIN/GLOBULIN RATIO 1.4 (1.0-2.2); BILIRUBIN,TOTAL 0.4 mg/dL (0.2-1.0); CALCIUM 10.3 mg/dL (8.5-10.3); CRP - C-REACTIVE PROTEIN 1.2 mg/dL (0-1.0); TOTAL PROTEIN 7.9 g/dL (6.7-8.2)
== END 2020-11-28 20:42 | disposition home or self-care (01) ==
LOC: ED 19:39
DX: G44.89 Other headache syndrome (principal)
CPT/HCPCS: 36415; 80053; 85025; 85651; 86140; 99283; 99284

== ENCOUNTER 2020-12-03 07:00 | Outpatient (CLI) | payer OTHER | END 2020-12-03 23:59 | disposition home or self-care (01) | LOC: COV 07:00 | PROVIDERS: ATTEND Family Medicine | DX: R53.83 Other fatigue (principal); R09.81 Nasal congestion; J34.89 Other specified disorders of nose and nasal sinuses; Z20.822 Contact with and (suspected) exposure to COVID-19 ==

== ENCOUNTER 2020-12-21 13:03 | Outpatient (CLI) | payer OTHER ==
[2020-12-21 13:56] LABS: INR 1.2 (0.8-1.2); PT - PROTHROMBIN TIME 13.3 secs (9.9-12.6)
[2020-12-21 14:12] LABS: FREE T4 (FREE THYROXINE) 0.76 ng/dL (0.58-1.64)
== END 2020-12-21 13:04 | disposition home or self-care (01) ==
LOC: LAB 13:03
PROVIDERS: ATTEND Family Medicine
DX: O02.1 Missed abortion (principal); M25.50 Pain in unspecified joint
CPT/HCPCS: 36415; 81599; 84439; 84481; 85610; 85613; 85730; 86147

== ENCOUNTER 2021-02-20 19:06 | Outpatient (CLI) | payer OTHER | END 2021-02-20 19:07 | disposition home or self-care (01) | LOC: LAB 19:06 | PROVIDERS: ATTEND Obstetrics & Gynecology | DX: Z31.69 Encounter for other general counseling and advice on procreation (principal) | CPT/HCPCS: 36415; 81599; 85210; 85613; 85730; 86147 ==

== ENCOUNTER 2021-03-06 07:58 | Outpatient (CLI) | payer OTHER | END 2021-03-06 07:59 | disposition home or self-care (01) | LOC: DI 07:58 | PROVIDERS: ATTEND Family Medicine | DX: Z86.79 Personal history of other diseases of the circulatory system (principal) | CPT/HCPCS: 93306 ==

== ENCOUNTER 2021-03-09 15:38 | Outpatient (CLI) | payer OTHER | END 2021-03-09 15:39 | disposition home or self-care (01) | LOC: LAB 15:38 | PROVIDERS: ATTEND Obstetrics & Gynecology | DX: Z31.69 Encounter for other general counseling and advice on procreation (principal); R79.1 Abnormal coagulation profile | CPT/HCPCS: 36415; 81599; 84144; 85613 ==

== ENCOUNTER 2021-07-02 18:01 | Emergency (ER) | payer OTHER ==
--- NOTE | 2021-07-02 18:39 | ED Physician Documentation ---
History of Present Illness - Stated complaint Stated Complaint: NECK/RT SIDE PX - Chief complaint Chief Complaint: General - Additonal information Additional information: 36-year-old female presents the emergency department for 2 major concerns: 1 she is reporting intermittent palpitations and some shortness of air for the last 3 to 4 weeks. She states that with exertion or talking too much she feels starved for air. She is not having any chest pain. No unilateral leg swelling no previous history of blood clots or cancer. However she did travel to [place] about 1 month ago. She is also on progesterone to help regulate men strual cycles. 2. She is reporting intermittent neck pain on the right side that radiates to the right arm. This is particularly worse when supine or asleep at night often wakes up with right arm pain or numbness in the arm. She has not had any falls or trauma no current paresthesias or complaints of neck pain. She has taken Aleve without relief of the symptoms. 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 denies: Chest pain / pressure, Pedal edema, Calf pain Respiratory: reports: Dyspnea. 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 - Present Medications Home Medications: Ambulatory Orders Medication Instructions Recorded Confirmed No Known Home Medications 07/29/20 11/28/20 - Allergies Allergies/Adverse Reactions: Allergies Allergy/AdvReac Type Severity Reaction Status Date / Time No Known Drug Allergies Allergy Verified 07/02/21 18:04 - Social History Does the pt smoke?: No Smoking Status: Never smoker Does the pt drink ETOH?: No Does the pt have substance abuse?: No - Immunizations Immunizations are current?: Yes - POLST Patient has POLST: No PD ED PE EXPANDED - General General: Alert, No acute distress - Neck Neck: Supple w/out meningeal sx. No: Adenopathy - Cardiac Cardiac: Regular Rate, Radial strong equal, Pedal strong equal, Cap refill < 2 sec - Respiratory Respiratory: Clear to ausultation xavier. No: Distress, Labored - Abdomen Abdomen: Normal Bowel sounds. No: Tender to palpation - Derm Derm: Normal color, Warm and dry. No: Rash - Extremities Extremities: Normal, Deformity. No: Pedal edema bilateral, Right calf TTP/cord, Left calf TTP/cord - Neuro Neuro: Alert and Oriented X 3, CNII-XII intact - GCS Eye Opening: Spontaneous Motor: Obeys Commands Verbal: Oriented Total: 15 Results - Vitals Vitals: Vital Signs - 24 hr 07/02/21 07/02/21 18:04 18:22 Temperature 36.7 C Heart Rate 81 Respiratory 18 18 Rate Blood Pressure 143/91 H O2 Saturation 100 Oxygen O2 Source Room air - EKG (time done) 1835 Rate: Rate (enter#) (77) Rhythm: NSR [place]: Normal Intervals: Prolonged [place]. No: Prolonged QT QRS: Normal Ischemia: Normal ST segments Compare to prior EKG: Old EKG unavailable Computer interpretation: Agree with computer - Labs Labs: Laboratory Tests 07/02/21 07/02/21 07/02/21 18:47 18:47 18:47 WBC 6.8 RBC 4.46 Hgb 12.6 Hct 38.3 MCV 85.9 MCH 28.3 MCHC 32.9 RDW 13.6 Plt Count 241 MPV 10.2 Neut # (Auto) 3.8 Lymph # (Auto) 2.3 [place] # (Auto) 0.6 Eos # (Auto) 0.1 Baso # (Auto) 0.0 Absolute Nucleated RBC 0.00 Nucleated RBC % 0.0 D-Dimer < 200.0 L Sodium 136 Potassium 3.5 Chloride 102 Carbon Dioxide 26 Anion Gap 8.0 BUN 16 Creatinine 0.8 Estimated GFR (MDRD) 81 L Glucose 116 H Calcium 9.0 Magnesium 2.0 Total Bilirubin 0.7 AST 17 ALT 16 Alkaline Phosphatase 45 Troponin I High Sens Total Protein 7.4 Albumin 4.1 Globulin 3.3 Albumin/Globulin Ratio 1.2 Lipase 36 Serum HCG, Qual 07/02/21 07/02/21 18:47 18:47 WBC RBC Hgb Hct MCV MCH MCHC RDW Plt Count MPV Neut # (Auto) Lymph # (Auto) [place] # (Auto) Eos # (Auto) Baso # (Auto) Absolute Nucleated RBC Nucleated RBC % D-Dimer Sodium Potassium Chloride Carbon Dioxide Anion Gap BUN Creatinine Estimated GFR (MDRD) Glucose Calcium Magnesium Total Bilirubin AST ALT Alkaline Phosphatase Troponin I High Sens < 2.3 L Total Protein Albumin Globulin Albumin/Globulin Ratio Lipase Serum HCG, Qual NEGATIVE - Rads (name of study) CXR Radiology: Final report received (no acute process) PD MEDICAL DECISION MAKING - ED course Complexity details: reviewed results, d/w patient ED course: 36-year-old female presents emergency department for evaluation of palpitations that have been intermittent for a number of weeks since travel. She reports a number of stressors including the recent deployment of her as well as children at home. She did report some pleuritic component to her palpitations. Chest x-ray is unremarkable for age. No pneumonia. D-dimer is not elevated thus low suspicion for PE. By Wells criteria she is also exceedingly low. EKG is nonischemic high-sensitivity troponin is negative. Screening labs are otherwise unremarkable. Patient was on a monitor here in the emergency department without any noted ectopy for about 90 minutes. I suspect that the cause of her palpitations is likely anxiety and stress induced but I have asked her to follow-up closely with her PCP. She certainly is not presyncopal and has not had any syncopal episodes. She also reports neck pain in the right side of her neck which causes her to wake up at night and often have a numb arm. I suspect that she has cervical radiculopathy. Emergent return precautions were discussed for worsening symptoms advise close follow-up with PCP. Departure - Departure Disposition: 01 Home, Self Care Clinical Impression: Palpitations with regular cardiac rhythm, Cervical radiculopathy Condition: Stable Record reviewed to determine appropriate education?: Yes Instructions: ED Cervical Radiculopathy Comments: Luz Maria you are seen in the ER today for intermittent palpitations for a few weeks. Your screening EKG, chest x-ray and labs are all essentially normal. While here in the emergency department on the monitor you did not have any irregular rhythms. As we discussed sometimes people that are acutely anxious or stressed can have the sensation of palpitations. I encourage you to follow this up with your primary care provider as soon as possible. You may benefit from treatment for your anxiety and/or evaluation with a Holter monitor. The pain in your neck is most likely a condition called cervical radiculopathy. Most patients will benefit from physical therapy. However your primary care provider may need to order an MRI for longer-term evaluation.
[2021-07-02 18:54] LABS: BASOPHILS % (AUTO) 0.1 %; EOSINOPHILS # (AUTO) 0.1 10^3/uL (0.0-0.7); HCT - HEMATOCRIT 38.3 % (37.0-47.0); HGB - HEMOGLOBIN 12.6 g/dL (12.0-16.0); LYMPHOCYTES # (AUTO) 2.3 10^3/uL (1.5-3.5); LYMPHOCYTES % (AUTO) 32.9 %; MEAN CORPUSCULAR HEMOGLOBIN 28.3 pg (27.0-31.0); MEAN CORPUSCULAR HGB CONC 32.9 g/dL (32.0-36.0); MEAN CORPUSCULAR VOLUME 85.9 fL (81.0-99.0); MEAN PLATELET VOLUME 10.2 fL (7.9-10.8); MONOCYTES # (AUTO) 0.6 10^3/uL (0.0-1.0); MONOCYTES % (AUTO) 8.6 %; NEUTROPHILS # (AUTO) 3.8 10^3/uL (1.5-6.6); PLT - PLATELET COUNT 241 10^3/uL (130-450); RED BLOOD COUNT 4.46 10^6/uL (4.20-5.40); RED CELL DISTRIBUTION WIDTH 13.6 % (12.0-15.0); WHITE BLOOD COUNT 6.8 x10^3/uL (4.8-10.8)
[2021-07-02 19:04] LABS: ALBUMIN 4.1 g/dL (3.2-5.5); ALBUMIN/GLOBULIN RATIO 1.2 (1.0-2.2); BILIRUBIN,TOTAL 0.7 mg/dL (0.2-1.0); CREATININE 0.8 mg/dL (0.4-1.0); POTASSIUM 3.5 mmol/L (3.5-5.0); TOTAL PROTEIN 7.4 g/dL (6.7-8.2)
--- NOTE | 2021-07-02 19:28 | XRAY Report ---
PROCEDURE: Chest 1 View X-Ray INDICATIONS: chest pain TECHNIQUE: One view of the chest was acquired. COMPARISON: None. FINDINGS: Surgical changes and devices: None. Lungs and pleura: No pleural effusions or pneumothorax. Lungs are clear. Mediastinum: Mediastinal contours appear normal. Heart size is normal. Bones and chest wall: No suspicious bony lesions. Overlying soft tissues appear unremarkable. IMPRESSION: No acute cardiopulmonary abnormality. Reviewed by: Maximus Ballard MD on 07/02/2021 7:27 PM PDT Approved by: Maximus Ballard MD on 07/02/2021 7:27 PM PDT Station ID: [id number]
[2021-07-02 19:30] LABS: HCG,QUALITATIVE BLOOD NEGATIVE
[2021-07-02 20:27] VITALS: BP 128/76
== END 2021-07-02 20:27 | disposition home or self-care (01) ==
LOC: ED 18:01
DX: M54.12 Radiculopathy, cervical region (principal); R00.2 Palpitations
CPT/HCPCS: 36415; 80053; 83690; 83735; 84484; 84703; 85025; 85379; 93005; 99284

== ENCOUNTER 2021-07-12 12:48 | Outpatient (CLI) | payer OTHER ==
--- NOTE | 2021-07-12 15:57 | XRAY Report ---
PROCEDURE: Cervical Spine 2 View INDICATIONS: NECK PAIN TECHNIQUE: 3 view(s) of the cervical spine were acquired. COMPARISON: None. FINDINGS: Bones: No fractures or dislocations to the T1 level. Reversal of the normal cervical lordosis with a kyphotic apex at the C5-6 level. There is moderate disc degeneration and uncovertebral joint hypert rophy at this level. The lateral masses of C1 appear intact on the odontoid view. No suspicious bony lesions. Soft tissues: No prevertebral soft tissue swelling. IMPRESSION: 1. Focal degenerative disc and endplate change resulting in slight cervical kyphosis at the C5-6 leve l. There is likely bilateral C6 radiculopathy. Reviewed by: Smita Manuel MD on 07/12/2021 3:56 PM PDT Approved by: Smita Manuel MD on 07/12/2021 3:56 PM PDT Station ID: [id number]
== END 2021-07-12 12:49 | disposition home or self-care (01) ==
LOC: DI.N 12:48
PROVIDERS: ATTEND Family Medicine
DX: M50.322 Other cervical disc degeneration at C5-C6 level (principal); M47.812 Spondylosis without myelopathy or radiculopathy, cervical region

== ENCOUNTER 2021-08-19 08:00 | Outpatient (CLI) | payer OTHER ==
[2021-08-19 18:17] LABS: BASOPHILS % (AUTO) 0.4 %; EOSINOPHILS # (AUTO) 0.1 10^3/uL (0.0-0.7); EOSINOPHILS % (AUTO) 2.5 %; HCT - HEMATOCRIT 38.8 % (37.0-47.0); HGB - HEMOGLOBIN 12.8 g/dL (12.0-16.0); LYMPHOCYTES # (AUTO) 2.4 10^3/uL (1.5-3.5); LYMPHOCYTES % (AUTO) 46.4 %; MEAN CORPUSCULAR HEMOGLOBIN 28.8 pg (27.0-31.0); MEAN CORPUSCULAR VOLUME 87.2 fL (81.0-99.0); MEAN PLATELET VOLUME 10.5 fL (7.9-10.8); MONOCYTES # (AUTO) 0.5 10^3/uL (0.0-1.0); MONOCYTES % (AUTO) 9.8 %; NEUTROPHILS # (AUTO) 2.1 10^3/uL (1.5-6.6); NEUTROPHILS % (AUTO) 40.7 %; PLT - PLATELET COUNT 278 10^3/uL (130-450); RED BLOOD COUNT 4.45 10^6/uL (4.20-5.40); RED CELL DISTRIBUTION WIDTH 13.7 % (12.0-15.0); WHITE BLOOD COUNT 5.2 x10^3/uL (4.8-10.8)
[2021-08-19 18:51] LABS: ALBUMIN 4.2 g/dL (3.2-5.5); ALBUMIN/GLOBULIN RATIO 1.4 (1.0-2.2); ALKALINE PHOSPHATASE 47 IU/L (42-121); ALT ALANINE AMINOTRANSFERASE 14 IU/L (10-60); AST ASPARTATE AMINOTRANSFERASE 19 IU/L (10-42); BILIRUBIN,TOTAL 0.6 mg/dL (0.2-1.0); BUN - BLOOD UREA NITROGEN 15 mg/dL (6-20); CALCIUM 9.3 mg/dL (8.5-10.3); CARBON DIOXIDE - CO2 27 mmol/L (21-32); CHLORIDE 104 mmol/L (101-111); CHOL/HDL RATIO 4.3 (<4.4); CHOLESTEROL 192 mg/dL; CREATININE 0.8 mg/dL (0.4-1.0); GFR - MDRD 81 (>89); GLUCOSE 101 mg/dL (70-100); HDL CHOLESTEROL 45 mg/dL; LDL CHOLESTEROL,CALCULATED 112 mg/dL; LDL/HDL RATIO 2.5 (<4.4); POTASSIUM 3.8 mmol/L (3.5-5.0); SODIUM 138 mmol/L (135-145); TOTAL PROTEIN 7.3 g/dL (6.7-8.2); TRIGLYCERIDES 174 mg/dL; URIC ACID 5.2 mg/dL (2.6-7.2); VLDL CHOLESTEROL 35 mg/dL
[2021-08-19 18:53] LABS: THYROID STIMULATING HORMONE 1.67 uIU/mL (0.34-5.60)
[2021-08-19 19:02] LABS: CRP - C-REACTIVE PROTEIN < 1.0 mg/dL (0-1.0)
[2021-08-19 19:32] LABS: RHEUMATOID FACTOR NEGATIVE (Negative)
== END 2021-08-19 23:59 | disposition home or self-care (01) ==
LOC: LAB.WCP 08:00
PROVIDERS: ATTEND Family Medicine
DX: Z00.00 Encounter for general adult medical examination without abnormal findings (principal); M25.50 Pain in unspecified joint
CPT/HCPCS: 36415; 80053; 80061; 83721; 84443; 84550; 85025; 85651; 86140; 86200; 86430

== ENCOUNTER 2022-03-07 10:51 | Outpatient (CLI) | payer OTHER | END 2022-03-07 23:59 | disposition home or self-care (01) | LOC: LAB.WCP 10:51 | PROVIDERS: ATTEND Nurse Practitioner Family | DX: R10.9 Unspecified abdominal pain (principal) | CPT/HCPCS: 87086 ==

== ENCOUNTER 2023-04-21 09:06 | Outpatient (CLI) | payer OTHER ==
[2023-04-21 11:55] LABS: BASOPHILS % (AUTO) 0.4 %; EOSINOPHILS # (AUTO) 0.1 10^3/uL (0.0-0.7); EOSINOPHILS % (AUTO) 2.3 %; HGB - HEMOGLOBIN 12.7 g/dL (12.0-16.0); LYMPHOCYTES % (AUTO) 39.5 %; MEAN CORPUSCULAR HEMOGLOBIN 26.4 pg (27.0-31.0); MEAN CORPUSCULAR HGB CONC 31.8 g/dL (32.0-36.0); MEAN CORPUSCULAR VOLUME 83.2 fL (81.0-99.0); MEAN PLATELET VOLUME 10.6 fL (7.9-10.8); MONOCYTES # (AUTO) 0.4 10^3/uL (0.0-1.0); MONOCYTES % (AUTO) 7.9 %; NEUTROPHILS # (AUTO) 2.5 10^3/uL (1.5-6.6); NEUTROPHILS % (AUTO) 49.3 %; PLT - PLATELET COUNT 242 10^3/uL (130-450); RED BLOOD COUNT 4.81 10^6/uL (4.20-5.40); RED CELL DISTRIBUTION WIDTH 14.6 % (12.0-15.0); WHITE BLOOD COUNT 5.2 x10^3/uL (4.8-10.8)
[2023-04-21 12:21] LABS: THYROID STIMULATING HORMONE 2.86 uIU/mL (0.34-5.60)
[2023-04-21 12:26] LABS: ESTIMATED AVERAGE GLUCOSE 114 mg/dL (70-100); HEMOGLOBIN A1c% 5.6 % (4.27-6.07)
[2023-04-21 21:22] LABS: ALBUMIN/GLOBULIN RATIO 1.2 (1.0-2.2); ALKALINE PHOSPHATASE 45 IU/L (42-121); ALT ALANINE AMINOTRANSFERASE 18 IU/L (10-60); AST ASPARTATE AMINOTRANSFERASE 17 IU/L (10-42); BILIRUBIN,TOTAL 0.5 mg/dL (0.2-1.0); BUN - BLOOD UREA NITROGEN 20 mg/dL (6-20); CALCIUM 9.2 mg/dL (8.5-10.3); CARBON DIOXIDE - CO2 27 mmol/L (21-32); CHLORIDE 106 mmol/L (101-111); CHOL/HDL RATIO 4.3 (<4.4); CHOLESTEROL 220 mg/dL; CREATININE 0.8 mg/dL (0.4-1.0); GFR - MDRD 80 (>89); GLUCOSE 117 mg/dL (70-100); HDL CHOLESTEROL 51 mg/dL; LDL CHOLESTEROL,CALCULATED 146 mg/dL; LDL/HDL RATIO 2.9 (<4.4); POTASSIUM 4.3 mmol/L (3.5-5.0); SODIUM 139 mmol/L (135-145); TOTAL PROTEIN 7.4 g/dL (6.7-8.2); TRIGLYCERIDES 113 mg/dL; VLDL CHOLESTEROL 23 mg/dL
[2023-04-21 21:35] LABS: CRP - C-REACTIVE PROTEIN < 1.0 mg/dL (0-1.0)
[2023-04-22 10:09] LABS: VITAMIN D 25-HYDROXY 27.1 ng/mL (30.0-100.0)
[2023-04-22 15:08] LABS: ANTI-DNA (DS) AB QN 2 IU/mL (0-9); CENTROMERE B ANTIBODIES <0.2 AI (0.0-0.9); CHROMATIN ANTIBODIES <0.2 AI (0.0-0.9); JO-1 AB <0.2 AI (0.0-0.9); RIBOSOMAL P ANTIBODIES <0.2 AI (0.0-0.9); RNP ANTIBODIES <0.2 AI (0.0-0.9); SCLERODERMA-70 ANTIBODIES <0.2 AI (0.0-0.9); SJOGREN'S ANTI-SS-A <0.2 AI (0.0-0.9); SJOGREN'S ANTI-SS-B <0.2 AI (0.0-0.9); SMITH ANTIBODIES <0.2 AI (0.0-0.9); SMITH/RNP ANTIBODIES <0.2 AI (0.0-0.9)
== END 2023-04-21 09:07 | disposition home or self-care (01) ==
LOC: LAB.N 09:06
PROVIDERS: ATTEND Nurse Practitioner Family
DX: Z00.00 Encounter for general adult medical examination without abnormal findings (principal); E55.9 Vitamin D deficiency, unspecified; E66.9 Obesity, unspecified; M25.50 Pain in unspecified joint
CPT/HCPCS: 36415; 80053; 80061; 82306; 83036; 83721; 84443; 85025; 86140; 86225; 86235

== ENCOUNTER 2023-04-21 09:46 | Outpatient (CLI) | payer OTHER ==
--- NOTE | 2023-04-21 15:35 | XRAY Report ---
PROCEDURE: Thoracic Spine 3 View INDICATIONS: BACK PAIN, THORACIC REGION TECHNIQUE: 2 views of the thoracic spine were acquired. COMPARISON: None. FINDINGS: Bones: No fractures or dislocations. No suspicious bony lesions. 12 pairs of ribs are noted, and a ppear intact where visualized. Soft tissues: No paravertebral stripe thickening. IMPRESSION: Unremarkable thoracic spine radiographs Reviewed by: Jarret Go MD on 04/21/2023 2:34 PM AKDT Approved by: Jarret Go MD on 04/21/2023 2:34 PM AKDT Station ID: [id number]
== END 2023-04-21 09:47 | disposition home or self-care (01) ==
LOC: DI 09:46
PROVIDERS: ATTEND Nurse Practitioner Family
DX: M54.6 Pain in thoracic spine (principal); Z00.00 Encounter for general adult medical examination without abnormal findings; E55.9 Vitamin D deficiency, unspecified; E66.9 Obesity, unspecified; M25.50 Pain in unspecified joint
CPT/HCPCS: 36415; 80053; 80061; 82306; 83036; 83516; 83721; 84443; 85025; 86140; 86225; 86235

== ENCOUNTER 2023-09-16 18:15 | Outpatient (CLI) | payer OTHER ==
[2023-09-16 21:10] LABS: BASOPHILS % (AUTO) 0.4 %; EOSINOPHILS # (AUTO) 0.2 10^3/uL (0.0-0.7); HCT - HEMATOCRIT 38.9 % (37.0-47.0); HGB - HEMOGLOBIN 12.2 g/dL (12.0-16.0); LYMPHOCYTES % (AUTO) 39.1 %; MEAN CORPUSCULAR HEMOGLOBIN 26.2 pg (27.0-31.0); MEAN CORPUSCULAR HGB CONC 31.4 g/dL (32.0-36.0); MEAN CORPUSCULAR VOLUME 83.7 fL (81.0-99.0); MEAN PLATELET VOLUME 10.6 fL (7.9-10.8); MONOCYTES # (AUTO) 0.6 10^3/uL (0.0-1.0); MONOCYTES % (AUTO) 7.4 %; NEUTROPHILS # (AUTO) 3.9 10^3/uL (1.5-6.6); NEUTROPHILS % (AUTO) 50.8 %; PLT - PLATELET COUNT 343 10^3/uL (130-450); RED BLOOD COUNT 4.65 10^6/uL (4.20-5.40); RED CELL DISTRIBUTION WIDTH 14.6 % (12.0-15.0); WHITE BLOOD COUNT 7.6 x10^3/uL (4.8-10.8)
[2023-09-16 21:24] LABS: ALBUMIN 4.4 g/dL (3.2-5.5); ALBUMIN/GLOBULIN RATIO 1.7 (1.0-2.2); BILIRUBIN,TOTAL 0.2 mg/dL (0.2-1.0); CALCIUM 9.8 mg/dL (8.5-10.3); CREATININE 0.9 mg/dL (0.6-1.3)
[2023-09-16 21:33] LABS: THYROID STIMULATING HORMONE 2.37 uIU/mL (0.34-5.60)
== END 2023-09-16 18:30 | disposition home or self-care (01) ==
LOC: LAB.N 18:15
PROVIDERS: ATTEND Physician Assistant Medical
DX: R42 Dizziness and giddiness (principal)
CPT/HCPCS: 36415; 80053; 82607; 82746; 84443; 85025

== ENCOUNTER 2024-02-10 15:49 | Outpatient (CLI) | payer OTHER ==
[2024-02-10] MEDS ORDERED: iohexoL-300 100 ML VIAL ONE (15:54)
[2024-02-10] MEDS: iohexoL-300 100 ML VIAL IVP ONE (16:48)
--- NOTE | 2024-02-10 17:21 | CT Report ---
PROCEDURE: Soft Tissue Neck W INDICATIONS: THROAT PAIN CONTRAST: Omnipaque 300 100ml TECHNIQUE: After the administration of intravenous contrast, 3.0 mm axial sections acquired from the sella to th e aortic arch. Additional oblique axial 3.0 mm sections acquired through the pharynx. 3 mm thick co hugh reformats were generated. For radiation dose reduction, the following was used: automated exp osure control, adjustment of mA and/or kV according to patient size. COMPARISON: None. FINDINGS: Image quality: Excellent. Lymph nodes: No enlarged lymph nodes seen throughout the neck. Vessels: Visualized vasculature appears patent. Neck spaces: The oropharynx, nasopharynx, and pharynx demonstrate no mucosal lesions. The vocal cor ds, false vocal cords, pyriform sinuses, epiglottis, vallecula, and tongue base all appear normal. E xtramucosal spaces appear unremarkable. Glands: The parotid and submandibular glands appear normal. The thyroid is normal in size and there are no incidental findings. Miscellaneous: Visualized brain and orbits appear normal. Lung apices appear clear. Superficial so ft tissues appear normal. Bones: No suspicious bony lesions. Mild degenerative changes of the spine. Visualized sinuses and m astoids appear unremarkable. IMPRESSION: No cause for patient's symptoms is identified. No abnormalities are seen within the neck. Reviewed by: Rory Walters MD on 02/10/2024 5:19 PM PDT Approved by: Rory Walters MD on 02/10/2024 5:19 PM PDT Station ID: [id number]
== END 2024-02-10 15:50 | disposition home or self-care (01) ==
LOC: DI 15:49
PROVIDERS: ATTEND Nurse Practitioner Family
DX: R09.82 Postnasal drip (principal); R07.0 Pain in throat
CPT/HCPCS: 70491; Q9967